=== PATIENT | male | born 1975 | race Caucasian/White ===

== ENCOUNTER 2017-12-14 22:10 | Emergency (ER) | payer MEDICARE, MEDICAID ==
[~2017-12-14] VITALS: Ht 185.4 cm; Wt 92.7 kg
[~2017-12-14 22:10] MED LIST: ACCUPRIL 1010 MG/TAB PO; ACUPRIL; ALPRAZOLAM; CELEXA10 MG PO; CLARINEX-D 24 H1 T24 PO; LEXAPRO 10MG10 MG PO; LISINOPRIL10 MG PO; LORTAB 5/500 501 TAB PO; MELOXICAM; NORCO 325 MG-51 TAB PO; PEPCID COMPLETE1 CTB PO; PERCOCET 325 MG1 TAB PO; PERCOCET 5/321 UDTAB PO; SOMA; XANAX .25M0.25 MG/TA PO; XANAX0.5 MG PO; ZANAFLEX2 MG PO; ZYRTEC-D 5 MG-11 TER PO
[2017-12-14 22:19] VITALS: BP 138/84; TEMP 98.1
[2017-12-14] MEDS ORDERED: KLONOPIN 1MG1 MG PO (22:44)
[2017-12-14] MEDS ORDERED: FLEXERIL 1010 MG/TAB PO (22:45)
[2017-12-14] MEDS ORDERED: ROXICODONE30 MG PO (22:45)
[2017-12-14] MEDS ORDERED: AMBIEN 5MG TABLE5 MG PO (22:45)
[2017-12-14] MEDS ORDERED: BACTRIM DS 8001 TAB PO (23:09)
[2017-12-14 23:30] VITALS: PULSE 101
== END 2017-12-14 23:30 | disposition home or self-care (01) ==
LOC: COL.ER 22:10
DX: L03.115 Cellulitis of right lower limb (principal); F17.210 Nicotine dependence, cigarettes, uncomplicated

== ENCOUNTER 2018-12-29 18:06 | Emergency (ER) | payer MEDICARE, MEDICAID ==
[~2018-12-29] VITALS: Ht 185.4 cm; Wt 90.9 kg
[~2018-12-29 18:06] MED LIST changes: +AMBIEN 5MG TABLE5 MG PO; +BACTRIM DS 8001 TAB PO; +FLEXERIL 1010 MG/TAB PO; +KLONOPIN 1MG1 MG PO; +ROXICODONE30 MG PO
[2018-12-29 18:21] VITALS: BP 136/62; TEMP 99.2
[2018-12-29] MEDS ORDERED: XANAX 0.5MG0.5 MG PO (19:39)
[2018-12-29 20:03] LABS: HEMOGLOBIN 12.3 g/dl (13.5-18.0); MEAN CELL VOLUME 90 fl (80.0-100.0); MEAN CORPUSCULAR HEMOGLOBIN 31 pg (27.0-31.0); MEAN CORPUSCULAR HGB CONC 34 g/dl (33.0-37.0); MEAN PLATELET VOLUME 10.8 fl (7.4-10.4); PLATELET COUNT 300 K/mm3 (130-400); RED BLOOD COUNT 4.03 M/mm3 (4.20-5.60); REDCELL DISTRIBUTION WIDTH-CV 12.4 % (11.5-14.5)
[2018-12-29 20:16] LABS: ALBUMIN 3.6 gm/dL (3.5-5.0); BILIRUBIN,TOTAL 0.8 mg/dL (0.0-1.0); CALCIUM 9.2 mg/dL (8.4-10.2); CREATININE, serum 0.67 (0.66-1.25); POTASSIUM 3.4 mmol/L (3.4-5.0)
[2018-12-29 20:25] LABS: HEMATOCRIT 36.4 % (42.0-52.0)
[2018-12-29 20:56] LABS: C-REACTIVE PROTEIN 39.2 mg/dL (0.0-0.9)
[2018-12-29 21:06] LABS: BAND 13 % (0-10); LYMPHOCYTE 7 % (20.0-51.0); METAMYELOCYTE 2 % (0-0); NEUTROPHILS 70 % (42.0-75.2); PLATELET ESTIMATE NORMAL (NORMAL)
[2018-12-29 23:18] VITALS: PULSE 115
[2018-12-30 09:57] LABS: PATHOLOGY DIFF REVIEW OK
== END 2018-12-29 23:18 | disposition short-term general hospital (02) ==
LOC: COL.ER 18:06
PROVIDERS: Physician Assistant
DX: A41.9 Sepsis, unspecified organism (principal); S50.12XA Contusion of left forearm, initial encounter; L03.114 Cellulitis of left upper limb; F17.210 Nicotine dependence, cigarettes, uncomplicated; W06.XXXA Fall from bed, initial encounter; Y92.009 Unspecified place in unspecified non-institutional (private) residence as the place of occurrence of the external cause
CPT/HCPCS: J2270; J7030

== ENCOUNTER 2021-04-30 16:15 | Inpatient (IN) | payer MEDICARE, MEDICAID ==
[~2021-04-30] VITALS: Ht 185.4 cm; Wt 100.2 kg
[~2021-04-30 16:15] MED LIST changes: +XANAX 0.5MG0.5 MG PO
[2021-04-30 18:04] LABS: ALBUMIN 3.5 gm/dL (3.5-5.0); BILIRUBIN,TOTAL 0.8 mg/dL (0.2-1.2); CALCIUM 9.8 mg/dL (8.4-10.2); CREATININE, serum 0.96 mg/dL (0.72-1.25); POTASSIUM 4.6 mmol/L (3.5-4.5); TOTAL PROTEIN 6.9 gm/dL (6.2-8.1)
[2021-04-30 18:06] LABS: BASO # 0.2 K/mm3 (0.0-0.2); BASO % 1.4 % (0.0-2.0); EOS # 0.2 K/mm3 (0.0-0.7); GRAN # 5.8 K/mm3 (1.4-6.5); GRAN % 55.6 % (42.2-75.2); HEMOGLOBIN 11.1 g/dl (13.5-18.0); LYMPH # 3.3 K/mm3 (1.2-3.4); LYMPH % 32.1 % (20.0-51.0); MEAN CELL VOLUME 86 fl (80.0-100.0); MEAN CORPUSCULAR HEMOGLOBIN 27 pg (27.0-31.0); MEAN CORPUSCULAR HGB CONC 31 g/dl (33.0-37.0); MEAN PLATELET VOLUME 11.6 fl (7.4-10.4); MONO # 0.9 K/mm3 (0.1-0.6); MONO % 8.6 % (1.7-9.3); PLATELET COUNT 413 K/mm3 (130-400); RED BLOOD COUNT 4.15 M/mm3 (4.20-5.60); REDCELL DISTRIBUTION WIDTH-CV 17.3 % (11.5-14.5)
[2021-04-30 18:13] LABS: HEMATOCRIT 35.6 % (42.0-52.0)
[2021-04-30 18:18] LABS: TROPONIN-I 0.043 ng/mL (0.00-0.033)
[2021-04-30 20:15] LABS: C-REACTIVE PROTEIN 1.32 mg/dL (0.00-0.50); PHOSPHOROUS 5.7 mg/dL (2.3-4.7)
[2021-04-30 20:35] LABS: THYROID STIMULATING HORMONE 3.483 uIU/mL (0.350-4.940)
[2021-04-30] MEDS ORDERED: LASIX 40MG TABL40 MG PO (20:42)
[2021-04-30] MEDS ORDERED: CELEXA 20MG20 MG/TAB PO (20:42)
[2021-04-30] MEDS ORDERED: PRINIVIL2.5 MG PO (20:43)
[2021-04-30] MEDS ORDERED: TOPROL XL 25MG25 MG PO (20:43)
[2021-04-30] MEDS ORDERED: FLEXERIL 1010 MG/TAB PO (20:44)
[2021-04-30 22:11] LABS: COLLECTION METHOD CLEAN CATCH
[2021-04-30 22:20] LABS: PH 6 (5-8); SQUAMOUS EPITHELIAL None Seen /hpf; URINE APPEARANCE Clear; URINE BACTERIA None Seen /hpf; URINE BILIRUBIN Negative (NEGATIVE); URINE BLOOD Negative (NEGATIVE); URINE COLOR Straw; URINE GLUCOSE Negative (NEGATIVE); URINE KETONE Negative (NEGATIVE); URINE LEUKOCYTE ESTERASE Negative (NEGATIVE); URINE NITRATE Negative (NEGATIVE); URINE PROTEIN(semi-quant) Negative (NEGATIVE); URINE RBC None Seen /hpf; URINE UROBILINOGEN Negative (NEGATIVE)
[2021-04-30 22:32] LABS: INR 1.3 (0.8-3.0); PROTHROMBIN TIME 14.9 SECONDS (9.7-12.8)
[2021-04-30 22:34] LABS: TRICYCLIC ANTIDEPRESS URINE NEGATIVE
--- NOTE | 2021-04-30 23:20 | NUR ---
PT ADMIT FROM ER WITH CO SOA AND CHEST TIGHTNESS. BEEN GOING ON FOR 1-2 WEEKS. RECENT DIAGNOSIS W CHF. FLUID RESTRICTED, NPO AT MIDNIGHT. PM MEDS GIVEN. PRN FLEXERIL GIVEN. POC DISCUSSED. CALL LIGHT WI REACH.
[2021-05-01] VITALS (18 sets, daily range): BP systolic 99–136; BP diastolic 60–88; PULSE 63–106; TEMP 97.6–98.4
[2021-05-01 01:27] LABS: CALCIUM 9.2 mg/dL (8.4-10.2); CREATININE, serum 1.09 mg/dL (0.72-1.25); POTASSIUM 3.5 mmol/L (3.5-4.5)
--- NOTE | 2021-05-01 05:12 | NUR ---
REMAINS NPO, MOUTH SWABS GIVEN FOR COMFORT PT REPORTS HE JUST CANT HAVE A DRY MOUTH. CALL LIGHT WI REACH. NEEDS MET.
[2021-05-01 07:21] LABS: BASO # 0.1 K/mm3 (0.0-0.2); BASO % 1.2 % (0.0-2.0); EOS # 0.2 K/mm3 (0.0-0.7); EOS % 2.3 % (0-4.0); GRAN # 5.3 K/mm3 (1.4-6.5); GRAN % 58.7 % (42.2-75.2); HEMOGLOBIN 10.7 g/dl (13.5-18.0); LYMPH # 2.5 K/mm3 (1.2-3.4); LYMPH % 27.9 % (20.0-51.0); MEAN CELL VOLUME 86 fl (80.0-100.0); MEAN CORPUSCULAR HEMOGLOBIN 26 pg (27.0-31.0); MEAN CORPUSCULAR HGB CONC 31 g/dl (33.0-37.0); MEAN PLATELET VOLUME 11.4 fl (7.4-10.4); MONO # 0.9 K/mm3 (0.1-0.6); MONO % 9.6 % (1.7-9.3); PLATELET COUNT 379 K/mm3 (130-400); RED BLOOD COUNT 4.05 M/mm3 (4.20-5.60); REDCELL DISTRIBUTION WIDTH-CV 17.2 % (11.5-14.5)
[2021-05-01 07:23] LABS: HEMATOCRIT 34.9 % (42.0-52.0)
[2021-05-01 09:14] LABS: CALCIUM 9.1 mg/dL (8.4-10.2); CHOLESTEROL RISK RATIO 5.2; CREATININE, serum 0.99 mg/dL (0.72-1.25); POTASSIUM 4.3 mmol/L (3.5-4.5)
--- NOTE | 2021-05-01 09:29 | NUR ---
abrasive worker met with patient to discuss discharge plan. Patient lives at home with his Tamar ([phone]) in [place]. Patient reports to being fully independent with his ADL's and does not use a cane or a walker currently to assist with mobility but has used these in the past due to his back pain. Patient does not utilize any oxygen. PCP is Dr. Ousmane Nagy and he utilizes [facility] pharmacy for medications with no cost difficulty. Patient reports that he does not have a DPOA-HC. Educated the patient on what a DPOA is. Patient verbalizes his understanding and is not interested in setting one up at this time. Patient is planning on returning home with no concerns at this moment. Discharge plan: Home with
--- NOTE | 2021-05-01 14:37 | NUR ---
Primary nurse was assisted with [id number] [facility] [employer] student Gabriel Mcdowell and [facility] instructor Kaylin Giron MSN, RN
--- NOTE | 2021-05-01 15:03 | NUR ---
SEE MERGE DOCUMENTATION FOR MEDICATION ADMINISTRATION TIMES AND INTRA/POST PROCEDURE SEDATION ASSESSMENTS.
--- NOTE | 2021-05-01 18:48 | NUR ---
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 Patient did not c/o any pain. Right radial site was clean and intact with compression band in place. Pulses were 2+ bilaterally in the upper and lower extremeties. VSS and patient tolerating PO well.
--- NOTE | 2021-05-01 23:32 | NUR ---
ALERT AND OX4. TR BAND RELEASE GRADUALLY THIS EVENING W NO BLEED. BANDAIDE COVERING. INSTRUCTED NOT TO PUT PRESSURE ON WRIST AND TO CALL IMMEDIATLEY IF BLEEDS. NO HEMOTOMA, PULSES AND FEELING INTACT. C/O BAD CRAMPS IN ARMS AND LEGS THIS EVENING. SARAH DAWKINS NOTIFED. HOLDING 0000 DOSE OF LASIX, TYL AND HEAT PROVIDED FOR COMFORT. PM MEDS GIVEN. NEEDS MET.
[2021-05-02 02:52] VITALS: BP 116/78; PULSE 79; TEMP 98.4
--- NOTE | 2021-05-02 05:29 | NUR ---
RESTED THROUGH THE NIGHT AFTER TYL AND HEATING PAD GIVEN. NEEDS ARE MET.
[2021-05-02 08:03] VITALS: BP 124/87; BP 127/87; PULSE 96; PULSE 98; TEMP 98.1
[2021-05-02 12:50] VITALS: BP 98/52; PULSE 106; TEMP 98.4
--- NOTE | 2021-05-02 13:18 | NUR ---
Patient has done well today and is denying chest pain. Did c/o back pain, PRN flexeril was given. Patient's cath site remain clean, dry and intact.
[2021-05-02 13:44] LABS: CALCIUM 9.8 mg/dL (8.4-10.2); CREATININE, serum 0.99 mg/dL (0.72-1.25); MAGNESIUM 2.2 mg/dL (1.6-2.6)
[2021-05-02 16:24] VITALS: BP 116/86; PULSE 109; TEMP 98
[2021-05-02 20:02] VITALS: BP 118/78; PULSE 110; TEMP 98.1
--- NOTE | 2021-05-02 21:51 | NUR ---
PT REPORTS LEG AND ARM CRAMPS. REPORTED TO SARAH DAWKINS. WILL GIVEN HALF DOSE OF LASIX AT 0000. 20MG PER HER ORDER. TYL AND HEAT AND FLEXERIL WAS GIVEN FOR COMFORT. CONTINUES TO HAVE GOOD URINE OUTPT.
[2021-05-03 05:07] VITALS: BP 120/88; PULSE 70; PULSE 97; TEMP 98
[2021-05-03 08:04] VITALS: BP 113/61; PULSE 102; TEMP 98.4
--- NOTE | 2021-05-03 08:51 | NUR ---
Pt awake upon entry, sitting in bed eating. No C/O pain at this time. Shift assessments complete, left Pt in recliner, call light in reach.
[2021-05-03] MEDS ORDERED: PRINIVIL5 MG PO (09:16)
--- NOTE | 2021-05-03 11:05 | NUR ---
Pt discharged to home, discussed discharge instructions with Pt. Escorted Pt to entrance, Pt left in own vehicle.
== END 2021-05-03 11:07 | disposition home or self-care (01) | DRG 286 ==
LOC: COL.ER 16:15 → MEDICAL 19:39
PROVIDERS: Internal Medicine Cardiovascular Disease; Nurse Practitioner Family; Personal Emergency Response Attendant; ADMIT Internal Medicine
PROC: 4A023N7 Measurement of Cardiac Sampling and Pressure, Left Heart, Percutaneous Approach (ICD-10-PCS; principal; 2021-04-30)
PROC: B2111ZZ Fluoroscopy of Multiple Coronary Arteries using Low Osmolar Contrast (ICD-10-PCS; 2021-04-30)
DX: I11.0 Hypertensive heart disease with heart failure (principal); I50.43 Acute on chronic combined systolic (congestive) and diastolic (congestive) heart failure; E87.2 Acidosis; F17.210 Nicotine dependence, cigarettes, uncomplicated; I42.9 Cardiomyopathy, unspecified; E87.5 Hyperkalemia; D64.9 Anemia, unspecified; E78.5 Hyperlipidemia, unspecified; F41.9 Anxiety disorder, unspecified; R79.89 Other specified abnormal findings of blood chemistry
CPT/HCPCS: 99223-AI; 99232-AI; 99233-AI; 99239; J0456; J0696; J1644; J1940; J2250; J3010; J7050; Q9967